=== PATIENT | female | born 2000 | race Caucasian/White ===

== ENCOUNTER 2022-04-18 06:16 | Inpatient (IN) | payer OTHER ==
[2022-04-18] MEDS ORDERED: CITRIC ACID/SODIUM CITRATE 30 ML UNIT-DOSE CUP PO ONE (08:00)
[2022-04-18] MEDS ORDERED: ELECTROLYTE-148 SOLN 1,000 ML IV SCH (08:00)
[2022-04-18] MEDS ORDERED: morphine SULFATE/PF 1 MG/2 ML (2cc Syringe - QUVA) ONE (08:06)
[2022-04-18] MEDS ORDERED: PHENYLEPHRINE HCL 10 MG/1 ML SINGLE DOSE VIAL ONE (08:07)
[2022-04-18] MEDS ORDERED: SUCCINYLCHOLINE CHLORIDE 200 MG/10 ML SYRINGE ONE (08:09)
[2022-04-18] MEDS ORDERED: ELECTROLYTE-148 SOLN 500 ML IV ONE (08:19)
[2022-04-18] MEDS: ELECTROLYTE-148 SOLN 1,000 ML IV SCH ×2 (08:30→12:20)
[2022-04-18] MEDS ORDERED: ePHEDrine SULFATE 50 MG/1 ML AMPULE ONE (08:38)
[2022-04-18] MEDS ORDERED: OXYTOCIN 10 UNITS/ML VIAL ONE (09:24)
[2022-04-18] MEDS ORDERED: ceFAZolin SODIUM 1 GM VIAL ONE (09:24)
[2022-04-18] MEDS ORDERED: IBUPROFEN 600 MG TABLET (FP) PO PRN (09:45)
[2022-04-18] MEDS ORDERED: ONDANSETRON 4 MG/2 ML VIAL IVPUSH PRN (09:45)
[2022-04-18] MEDS ORDERED: ACETAMINOPHEN 325 MG TABLET (FP) PO PRN ×2 (09:45→09:46)
[2022-04-18] MEDS ORDERED: SENNOSIDES/DOCUSATE COMBO (SENNA PLUS) TABLET (UD) PO PRN (09:46)
[2022-04-18] MEDS ORDERED: METHYLERGONOVINE MALEATE 0.2 MG/1 ML AMP IM PRN (09:46)
[2022-04-18 10:44] VITALS: BMI 38.8
[2022-04-18] MEDS: OXYTOCIN 20 UNITS in 0.9% NS 20 UNIT/1,000 ML INFUS.BAG IV SCH (12:02)
[2022-04-18] MEDS: PRENATAL VITAMINS W/ FOLIC ACID TABLET (FP) PO SCH (12:20)
[2022-04-18] MEDS: IBUPROFEN 800 MG/8 ML IJ IVPB PRN ×2 (14:11→23:34)
[2022-04-18] MEDS ORDERED: oxyCODONE HCL 5 MG TABLET PO PRN ×2 (21:46)
[2022-04-19 07:42] LABS: BASO % 0.5 % (0-2.0); EOS % 1.4 % (0-4.5); HEMATOCRIT 28.2 % (32.4-45.2); LYMPH % 12.8 % (8-40); MCH 26.9 pg (25.7-33.7); MCHC 31.8 g/dl (32.0-36.0); MEAN CELL VOLUME 84.5 fl (80-96); MEAN PLT VOLUME 11.1 fl (7.5-11.1); MONO % 6.5 % (3.8-10.2); NEUT % 78.8 % (42.8-82.8); PLATELET COUNT 243 10^3/uL (134-434); RBC 3.33 M/mm3 (3.60-5.2); RDW 14.3 % (11.6-15.6); WHITE BLOOD COUNT 16.1 K/mm3 (4.0-10.0)
[2022-04-19] MEDS ORDERED: BISACODYL 10 MG SUPP.RECT RC PRN (09:46)
[2022-04-19] MEDS: PRENATAL VITAMINS W/ FOLIC ACID TABLET (FP) PO SCH (10:35)
[2022-04-19] MEDS: IBUPROFEN 600 MG TABLET (FP) PO PRN ×2 (10:35→21:33)
[2022-04-19] MEDS: SIMETHICONE 80 MG TAB.CHEW (FP) PO PRN (21:33)
[2022-04-20] MEDS: PRENATAL VITAMINS W/ FOLIC ACID TABLET (FP) PO SCH (09:21)
[2022-04-20] MEDS: IBUPROFEN 600 MG TABLET (FP) PO PRN ×2 (09:21→21:30)
[2022-04-20] MEDS: SIMETHICONE 80 MG TAB.CHEW (FP) PO PRN (21:30)
[2022-04-20] MEDS: OXYTOCIN 20 UNITS in 0.9% NS 20 UNIT/1,000 ML INFUS.BAG IV SCH (22:17)
[2022-04-20] MEDS: ELECTROLYTE-148 SOLN 1,000 ML IV SCH ×2 (22:17)
[2022-04-21] MEDS: SIMETHICONE 80 MG TAB.CHEW (FP) PO PRN (10:54)
[2022-04-21] MEDS: PRENATAL VITAMINS W/ FOLIC ACID TABLET (FP) PO SCH (10:54)
[2022-04-21] MEDS: IBUPROFEN 600 MG TABLET (FP) PO PRN (10:54)
[2022-04-21 14:12] VITALS: BP 129/85; PULSE 94; RESP 18; TEMP 98
== END 2022-04-21 14:40 | disposition home or self-care (01) | DRG 788 ==
LOC: JLDR 06:16 → J3W 11:00
PROVIDERS: ADMIT Obstetrics & Gynecology; ATTEND Obstetrics & Gynecology
PROC: 10D00Z1 Extraction of Products of Conception, Low, Open Approach (ICD-10-PCS; principal; 2022-04-18)
DX: O32.2XX0 Maternal care for transverse and oblique lie, not applicable or unspecified (principal); O99.892 Other specified diseases and conditions complicating childbirth; M41.80 Other forms of scoliosis, site unspecified; Z3A.40 40 weeks gestation of pregnancy; Z37.0 Single live birth
CPT/HCPCS: 36415; 85025; 88307-TC